=== PATIENT | female | born 1960 | race Caucasian/White ===

== ENCOUNTER 2024-11-20 12:45 | Emergency (ER) | payer BC, SELFPAY ==
--- NOTE | ~2024-11-20 | CT_ITS ---
EXAMINATION: CT ABDOMEN AND PELVIS WITH CONTRAST CLINICAL INFORMATION: low midline ABD pain, uterine biopsy 11/11 COMPARISON: None available. TECHNIQUE: Multidetector volumetric images were obtained from the superior aspect of the liver through the pubic symphysis following administration 85 mL of Omnipaque 350 intravenous contrast. Sagittal and coronal reformatted images were obtained on the technologist's workstation. Oral contrast: No This CT examination was performed using dose optimization techniques as appropriate, variously including the following: *Automated exposure control *Adjustment of mA and/or kV according to patient size (this includes techniques or standardized protocols for targeted exams where dose is matched to indication/reason for exam; i.e. extremities or head) *Use of iterative reconstruction technique DLP: 761 mGy-cm FINDINGS: LUNG BASES: The visualized lung bases are unremarkable. LIVER, GALLBLADDER, AND BILIARY TREE: The liver is normal in size, shape, and attenuation. No focal hepatic lesion or biliary ductal dilatation is present. The gallbladder is unremarkable with no evidence of radiopaque gallstones, gallbladder wall thickening, or obvious pericholecystic inflammatory changes. PANCREAS: Unremarkable. SPLEEN: Unremarkable. ADRENAL GLANDS: Unremarkable. KIDNEYS AND URETERS: The kidneys are normal in size, shape, and attenuation. No hydronephrosis, hydroureter, or calculi seen. No perinephric stranding. BLADDER: Unremarkable. GASTROINTESTINAL TRACT: The small and large bowel are nondilated. There is a segment of colon with wall thickening and marked surrounding stranding moderate sigmoid diverticulosis. No organized fluid collection or pneumoperitoneum. The appendix is not definitively seen, however there is no right lower quadrant evidence for appendicitis. ABDOMINAL WALL: No significant hernia is appreciated. LYMPH NODES: Normal. VASCULAR: Unremarkable. PELVIC VISCERA: Normal CT appearance of the uterus. No adnexal masses. OSSEOUS STRUCTURES: No acute or suspicious osseous abnormality. L4-L5 degenerative disc disease with vacuum disc phenomenon. CT/CT abdomen pelvis w IV con IMPRESSION: Acute uncomplicated sigmoid diverticulitis. Fleischner guidelines were followed. Electronically signed by: Radha Simmons DO 11/20/2024 03:52 PM [facility]
--- NOTE | 2024-11-20 12:51 | ED.GENADULT ---
HPI - General Adult General Chief complaint: Abdominal Pain Stated complaint: Pelvic Pain Time Seen by Provider: 11/20/24 13:31 Source: patient Mode of arrival: ambulatory Limitations: no limitations History of Present Illness ED Provider: Lilly Murphy NP HPI narrative: Patient is a 64-year-old female who presents emergency department for evaluation. She reports that yesterday evening while cooking dinner when she began experiencing mid lower abdominal pain radiates to the bilateral groin varying intensity. Has worsened in intensity as of today and has associated nausea but no vomiting. She states that she was able to urinate this morning but since then she finds it difficult to be able to urinate. She has been drinking oral fluids. No episodes of vomiting. She does state that on 11/11/2024 she underwent colposcopy due to an abnormal Pap smear which by her account she has had in the past. Denies fevers, chills, chest pain, hematemesis, diarrhea, constipation, hematochezia, melena, dysuria, urinary frequency, urinary urgency, urinary hesitancy, hematuria. Related Data Previous Rx's ?Medication ?Instructions ?Recorded amoxicillin 875 mg-potassium 1 tab PO BID #19 tabs 11/20/24 clavulanate 125 mg tablet Allergies Allergy/AdvReac Type Severity Reaction Status Date / Time No Known Allergies Allergy Verified 11/20/24 12:54 [No Known Allergies*] Review of Systems Review of Systems: Yes all other systems are reviewed and are negative [facility] Past Medical History Attestation statement: The following information was validated with the patient. Source: old records reviewed Social History Social History Advance Directives: No Advance Directives Information Provided: No Do you have a plan to hurt others: No Plan Physical Exam ED Vital Signs: Vital Signs - 24 hr 11/20/24 12:53 11/20/24 15:01 Temperature 98.8 F 97.6 F Pulse Rate 125 H 118 H Respiratory Rate 20 18 Blood Pressure 155/71 H 143/79 H Pulse Oximetry 98 99 Oxygen Delivery Method Room Air Room Air BMI result Body Mass Index 32.9 Appearance: Alert.?Oriented to person, place and time. No acute distress.?Normal affect.?? Neck: Normal inspection.? Neck supple.?? CVS: Heart sounds normal. Normal heart rate and rhythm.? Pulses normal.?? Respiratory: No respiratory distress.? Lung sounds clear to auscultation bilaterally?? Abdomen: Soft with tenderness upon palpation over the mid lower abdomen/suprapubic region. No rebound tenderness at McBurney's point. Negative psoas sign. Negative Rovsing sign. Negative Luis sign. No CVAT. Normoactive bowel sounds. No pulsatile mass.?? Skin: Skin warm and dry.? Normal skin color.? Extremities: No lower extremity edema.? Neuro: Moves all extremities spontaneously. Sensation intact bilaterally. Ambulates with normal steady gait. Course Course Course Narrative: This is a rapid medical exam performed by Vijaya Rivera NP: Additional HPI, ROS, PE not included below will be deferred to primary provider. Patient is a 64-year-old female presenting to the emergency department with complaint of severe lower abdominal pain since yesterday. Pain worse with sitting. Nausea without vomiting. Plan: labs, UA Reevaluation(s) Reevaluation #1: CT of the abdomen and pelvis reveals a normal-appearing uterus, no adnexal masses, acute uncomplicated sigmoid diverticulitis which could very well explain presence of her pain. However elected to still performed helped a examination to evaluate for CMT, that might suggest PID in the setting of recent procedure. Genitourinary:? Supervised by jeffry elam. Normal external appearance of urethra.? No lesions/lacerations or discharge or tenderness noted. No Bartholin cyst noted.? Speculum exam: normal appearance/palpation of vagina normal. No abnormal vaginal discharge, swelling, erythema, laceratons, or active bleeding noted.?No foreign bodies noted.? No vaginal tenderness noted.? Normal appearance of cervix. Normal palpation of cervix.? Cervical os is closed.? No abnormal cervical discharge noted.? No cervical lesion/mass.?? No cervical motion tenderness noted.? Negative chandelier sign.? Normal bimanual exam.? Suspect pain at this time secondary to diverticulitis, will treat with course of Augmentin as there is no sign of acute complication, plan for discharge home, discussed strict return precautions. Urinalysis is without signs of infection. Medications Administered Discontinued Medications Generic Name Dose Route Start Last Admin Trade Name Freq PRN Reason Stop Dose Admin Ceftriaxone Sodium 1 gm 11/20/24 13:55 11/20/24 14:00 Ceftriaxone Sodium 1 Gm Vial IVPUSH 11/20/24 13:56 1 gm ONCE ONE Administration Sodium Chloride 1,000 mls @ 999 mls/hr 11/20/24 14:00 11/20/24 15:17 Ns IV 11/20/24 15:00 Infused .Q1H1M HAMLET Infusion Iohexol 100 ml 11/20/24 14:55 11/20/24 14:55 Iohexol 350 Mg/Ml 100 Ml Infus..Btl IV 11/20/24 14:56 85 ml ONCE ONE Administration Morphine Sulfate 2 mg 11/20/24 13:40 11/20/24 14:00 Morphine Sulfate 2 Mg/Ml Cartridge IVPUSH 11/20/24 13:41 2 mg ONCE ONE Administration Protocol Ondansetron HCl 4 mg 11/20/24 13:40 11/20/24 14:00 Ondansetron Hcl 4 Mg/2 Ml Vial IVPUSH 11/20/24 13:41 4 mg ONCE ONE Administration Medical Decision Making Medical Decision Making [facility] Narrative: Patient is a 64-year-old female presents emergency department for evaluation of lower abdomen/pelvic pain and difficulty urinating today. Onset of pain yesterday evening as per HPI. As mentioned in HPI she underwent a colposcopy 9 days ago, she reports that she contacted her metal filer they thought it was less likely related to her procedure but advised her to come to the emergency department. Plan to obtain CT abdomen and pelvis to exclude perforation, patient receive 1 L normal saline IV fluid, Zofran IV and morphine 2 mg IV. Anticipate pelvic examination for further evaluation in the setting of recent procedure. She arrives tachycardic this may be secondary to pain however plan to obtain lactic acid and blood cultures in the event that there is any infectious pathology. At this time will cover with Rocephin, which will provide coverage for PID versus urinary tract pathology; UTI/pyelonephritis, renal colic, hydronephrosis. Plan to obtain bladder scan to assess for acute urinary retention/distention of the bladder. No rebound tenderness at McBurney's point, rigidity, guarding to suggest acute appendicitis. No tenderness of the left lower quadrant nor associated nausea, vomiting, diarrhea, constipation, hematochezia or melena to suggest diverticulitis or GI bleed. No appreciable hernia to suggest strangulation/incarceration. Lower suspicion for bowel obstruction. Differential Diagnosis Differential Diagnoses: The differential diagnosis associated with the presentation includes (See narrative above) Admission/Observation Consideration of admission/observation: Escalation of care including admission/observation considered (See narrative above ) Lab Data MDM Lab Attestation statement: I reviewed the patient's lab results. 11/20/24 13:56 11/20/24 13:56 Labs: Lab Results 11/20/24 Range/Units 13:56 WBC 14.9 H (4.8-10.8) X10*3/uL RBC 4.09 L (4.20-5.50) X10*6/uL Hgb 12.7 (12.0-16.0) g/dl Hct 37.4 (37.0-47.0) % MCV 91.4 (80.0-98.0) fL MCH 31.1 (27.0-33.0) pg MCHC 34.0 (31.0-35.0) g/dl RDW 12.8 (11.0-16.0) % Plt Count 236 (160-400) X10*3/uL MPV 9.5 (9.4-12.3) fL Immature Gran % (Auto) 1.0 H (0.0-0.4) % Neut % (Auto) 87.0 H (45-73) % Lymph % (Auto) 5.3 L (20-40) % [place] % (Auto) 6.3 (2-11) % Eos % (Auto) 0.1 (0-4) % Baso % (Auto) 0.3 (0-2) % Lymph # (Auto) 0.8 L (1.2-4.9) X10*3/uL [place] # (Auto) 0.9 (0.1-1.2) X10*3/uL Eos # (Auto) 0.0 (0.0-0.4) X10*3/uL Baso # (Auto) 0.0 (0.0-0.2) X10*3/uL Abs Immat Gran (auto) 0.15 H (0.00-0.03) X10*3/uL Absolute Neuts (auto) 12.9 H (2.0-8.3) x10*3/uL Absolute Nucleated RBC 0.000 (0.0-0.012) X10*3/uL Nucleated RBC % (auto) 0.0 (0.0-0.2) /100WBC Sodium 136 (135-145) mmol/L Potassium 3.6 (3.3-5.1) mmol/L Chloride 103 (96-108) mmol/L Carbon Dioxide 21 L (22-29) mmol/L Anion Gap 16 (12-20) BUN 8 L (9-16) mg/dL Creatinine 0.66 (0.5-1.4) mg/dL Estim Creat Clear Calc 96.6 Estimated GFR > 60 Random Glucose 124 H (60-115) mg/dL Lactic Acid 1.0 (0.5-2.0) mmol/L Calcium 9.0 (8.4-10.2) mg/dL Total Bilirubin 1.1 H (0.0-1.0) mg/dL AST 21 (5-31) U/L ALT 17 (0-31) U/L Alkaline Phosphatase 73 (39-117) U/L Total Protein 7.4 (6.5-8.0) g/dL Albumin 4.0 (3.5-5.0) g/dL Radiology Impression Discussion of test interpretation with radiology: I have reviewed the radiologist's reading. Radiologist Impression: FINDINGS: LUNG BASES: The visualized lung bases are unremarkable. LIVER, GALLBLADDER, AND BILIARY TREE: The liver is normal in size, shape, and attenuation. No focal hepatic lesion or biliary ductal dilatation is present. The gallbladder is unremarkable with no evidence of radiopaque gallstones, gallbladder wall thickening, or obvious pericholecystic inflammatory changes. PANCREAS: Unremarkable. SPLEEN: Unremarkable. ADRENAL GLANDS: Unremarkable. KIDNEYS AND URETERS: The kidneys are normal in size, shape, and attenuation. No hydronephrosis, hydroureter, or calculi seen. No perinephric stranding. BLADDER: Unremarkable. GASTROINTESTINAL TRACT: The small and large bowel are nondilated. There is a segment of colon with wall thickening and marked surrounding stranding moderate sigmoid diverticulosis. No organized fluid collection or pneumoperitoneum. The appendix is not definitively seen, however there is no right lower quadrant evidence for appendicitis. ABDOMINAL WALL: No significant hernia is appreciated. LYMPH NODES: Normal. VASCULAR: Unremarkable. PELVIC VISCERA: Normal CT appearance of the uterus. No adnexal masses. OSSEOUS STRUCTURES: No acute or suspicious osseous abnormality. L4-L5 degenerative disc disease with vacuum disc phenomenon. CT/CT abdomen pelvis w IV con IMPRESSION: Acute uncomplicated sigmoid diverticulitis. Fleischner guidelines were followed. Independent Historian Clinical information obtained from an independent historian. History obtained from or confirmed by: Spouse External Record Review External record reviewed: Outpatient record Discharge Plan Discharge Clinical Impression: Diverticulitis Patient Disposition: Home, Self-Care Instructions: Diverticulitis (ED), Diverticulitis Diet (ED) Additional Instructions: Follow a clear liquid diet over the next 2 days, followed by progression of a bland diet. Introduce a bland diet including crackers, bananas, rice, soup, toast, and boiled vegetables. This may progress to plain baked or boiled chicken or turkey. Avoid dairy products or foods high in fat or grease. Complete the entire course of antibiotics as prescribed. Follow-up with your primary care doctor. Return to emergency department any new or worsening symptoms or concerns. Prescriptions: New amoxicillin-pot clavulanate 875-125 mg tablet 1 tab PO BID Qty: 19 0RF Referrals: Lara Andrew MD [Primary Care Provider] - Print Language: [place]
[2024-11-20 12:53] VITALS: BP 155/71; PULSE 125; RESP 20; TEMP 37.1; O2SAT 98; BMI 32.9
[2024-11-20] MEDS: cefTRIAXone sodium 1 GM VIAL IVPUSH (14:00)
[2024-11-20] MEDS: Morphine Sulfate 2 MG/ML CARTRIDGE IVPUSH (14:00)
[2024-11-20] MEDS: 0.9 % Sodium Chloride 1,000 ML 999 ML IV (14:00)
[2024-11-20] MEDS: ondansetron HCL 4 MG/2 ML VIAL IVPUSH (14:00)
[2024-11-20 14:02] LABS: MANUAL DIFF FLAG NO
[2024-11-20 14:04] LABS: Basophils Percent Auto 0.3 % (0-2); Eosinophils Percent Auto 0.1 % (0-4); Hematocrit 37.4 % (37.0-47.0); Hemoglobin 12.7 g/dl (12.0-16.0); Imm Gran Abs Auto 0.15 X10*3/uL (0.00-0.03); Lymphocytes Absolute Auto 0.8 X10*3/uL (1.2-4.9); Lymphocytes Percent Auto 5.3 % (20-40); Mean Corpuscular Hemoglobin 31.1 pg (27.0-33.0); Mean Corpuscular Volume 91.4 fL (80.0-98.0); Mean Platelet Volume 9.5 fL (9.4-12.3); Monocytes Absolute Auto 0.9 X10*3/uL (0.1-1.2); Monocytes Percent Auto 6.3 % (2-11); Neutrophils Absolute Auto 12.9 x10*3/uL (2.0-8.3); Platelet Count 236 X10*3/uL (160-400); Red Blood Count 4.09 X10*6/uL (4.20-5.50); Red Cell Distribution Width 12.8 % (11.0-16.0); White Blood Count 14.9 X10*3/uL (4.8-10.8)
[2024-11-20 14:20] LABS: Alanine Aminotransferase 17 U/L (0-31); Alkaline Phosphatase 73 U/L (39-117); Anion Gap 16 (12-20); Aspartate Amino Transferase 21 U/L (5-31); Bilirubin Total 1.1 mg/dL (0.0-1.0); Blood Urea Nitrogen 8 mg/dL (9-16); Carbon Dioxide 21 mmol/L (22-29); Chloride 103 mmol/L (96-108); Creatinine Clr Calc Pharmacy 96.6; Estimated Glomerular Filt Rate > 60; Glucose Random 124 mg/dL (60-115); Potassium 3.6 mmol/L (3.3-5.1); Sodium 136 mmol/L (135-145); Total Protein 7.4 g/dL (6.5-8.0)
[2024-11-20] MEDS: iohexoL 350 MG/ML 100 ML INFUS..BTL IV (14:55)
[2024-11-20 15:01] VITALS: BP 143/79; PULSE 118; RESP 18; TEMP 36.4; O2SAT 99
[2024-11-20 16:02] LABS: Appearance Urine Cloudy; Color Urine Yellow; Glucose Urine UA Negative (Negative); Leukocyte Esterase Urine Negative (Negative); Nitrite Urine Negative (Negative); PH 6.5 (5.0-9.0); Specific Gravity - Urine <= 1.005 (1.005-1.025); Urine Blood Negative (Negative); Urine Ketones Negative (Negative); Urine Protein Negative (Neg-Trace)
[2024-11-20 16:34] VITALS: BP 121/64; PULSE 128; RESP 18; TEMP 36.7; O2SAT 96
[2024-11-20] MEDS: Amoxicillin/Potassium Clav 875 MG TABLET PO (16:35)
--- NOTE | 2024-11-20 16:49 | PC.NURSE ---
discharge vitals obtained - pt remains tachycardic. pt denies any chest pain/palpitations/dizziness/lightheadedness/sob. provider notified/aware of results. provider assessed pt - ok w/ vitals prior to d/c.
[2024-11-20 16:50] VITALS: BP 121/64; PULSE 128; RESP 18; TEMP 36.7; O2SAT 96
== END 2024-11-20 16:54 | disposition home or self-care (01) ==
PROVIDERS: Nurse Practitioner Family; Registered Nurse Emergency; Emergency Provider Emergency Medicine Emergency Medical Services; PCP Internal Medicine
DX: K57.32 Diverticulitis of large intestine without perforation or abscess without bleeding (principal); R10.2 Pelvic and perineal pain; R10.30 Lower abdominal pain, unspecified; R33.9 Retention of urine, unspecified; R11.2 Nausea with vomiting, unspecified; Z79.899 Other long term (current) drug therapy
CPT/HCPCS: 36415; 51798; 74177; 80053; 81003; 83605; 85025; 87040; 96361; 96374; 96375; 99284; 99285; J0696; J2270; J2405; Q9967